=== PATIENT | female | born 1955 | race Caucasian/White ===

== ENCOUNTER 2017-05-31 17:00 | Emergency (ER) | payer BC ==
[2017-05-31 17:07] VITALS: RESP 16
[2017-05-31] MEDS ORDERED: RX INFO: IV CONTRAST WAS GIVEN 1 EACH MISC MISCELLANE PRN (17:31)
[2017-05-31] MEDS ORDERED: SODIUM CHLORIDE 0.9% 1,000 ML IV STA (17:31)
--- NOTE | 2017-05-31 17:38 | ED ---
Abdominal Pain HPI - General Chief Complaint: Abdominal Pain Stated Complaint: Abd Pain- Dr Sent Time Seen by Provider: 05/31/17 17:24 Source: patient, RN notes reviewed, old records reviewed Mode of arrival: ambulatory Limitations: no limitations - History of Present Illness Initial Comments: This is a 61-year-old female presents emergency Department with chief complaint of right lower quadrant abdominal pain for the past week. Patient reports that she is sent in by her primary care doctor. She was at the pain seemed to start last weekend and she was not able to do any work with had sitting. She reports that the pain seems to worse with ambulation. Patient denies any specific fevers but states that she's felt chilled. She reports that she initially thought she was constipated and took multiple laxative to help with having a bowel movement. She denies any difficulty with bowel movements or diarrhea. She reports that she's had no nausea or vomiting as well. Patient reports that the pain is worse with ambulation and jumping up and down. She was sent here by her primary care provider Dr. Freddy Lea to rule out appendicitis. Patient reports that she has had a total hysterectomy, denies any other surgical history. Patient denies any urinary symptoms including hematuria or dysuria, melena or hematochezia, chest pain, shortness of breath, nausea, headache. - Related Data Home Medications Medication Instructions Recorded Confirmed Aspirin 81 mg PO DAILY 05/31/17 05/31/17 Multivit with Calcium,Iron,Min 1 tab PO DAILY 05/31/17 05/31/17 [Women's Multivitamin] Previous Rx's Medication Instructions Recorded Acetaminophen-Codeine 300-30mg 1 tab PO Q6H PRN #12 tablet 05/31/17 [Tylenol #3] Ciprofloxacin HCl [Cipro] 500 mg PO Q12HR 10 Days 05/31/17 metroNIDAZOLE [Flagyl] 500 mg PO TID #21 tab 05/31/17 Allergies Allergy/AdvReac Type Severity Reaction Status Date / Time No Known Allergies Allergy Verified 05/31/17 18:34 Review of Systems ROS Statement: Those systems with pertinent positive or pertinent negative responses have been documented in the HPI. ROS Other: All systems not noted in ROS Statement are negative. Past Medical History Past Medical History: No Reported History History of Any Multi-Drug Resistant Organisms: None Reported Past Surgical History: Hysterectomy Past Psychological History: No Psychological Hx Reported Smoking Status: Never smoker Past Alcohol Use History: Occasional Past Drug Use History: None Reported General Exam - General Exam Comments Initial Comments: 61-year-old female. No acute distress. Limitations: no limitations General appearance: alert, in no apparent distress Head exam: Present: atraumatic, normocephalic, normal inspection Eye exam: Present: normal appearance, PERRL, EOMI. Absent: scleral icterus, conjunctival injection, periorbital swelling ENT exam: Present: normal exam, mucous membranes moist Neck exam: Present: normal inspection. Absent: tenderness, meningismus, lymphadenopathy Respiratory exam: Present: normal lung sounds bilaterally. Absent: respiratory distress, wheezes, rales, rhonchi, stridor Cardiovascular Exam: Present: regular rate, normal rhythm, normal heart sounds. Absent: systolic murmur, diastolic murmur, rubs, gallop, clicks GI/Abdominal exam: Present: soft, tenderness (Patient has significant right lower quadrant tenderness with deep palpation. Positive psoas sign.), normal bowel sounds. Absent: distended, guarding, rebound, rigid Extremities exam: Present: normal inspection, full ROM, normal capillary refill. Absent: tenderness, pedal edema, joint swelling, calf tenderness Back exam: Present: normal inspection Neurological exam: Present: alert, oriented X3, CN II-XII intact Psychiatric exam: Present: normal affect, normal mood Skin exam: Present: warm, dry, intact, normal color. Absent: rash Course Vital Signs 05/31/17 05/31/17 17:02 18:58 Temperature 98.4 F 98.1 F Pulse Rate 81 85 Respiratory 16 16 Rate Blood Pressure 175/83 169/80 O2 Sat by Pulse 97 98 Oximetry Medical Decision Making - Medical Decision Making This is a 61-year-old female presents emergency Department with chief complaint of right lower quadrant abdominal pain for the past week. Patient reports that she is sent in by her primary care doctor. She was at the pain seemed to start last weekend and she was not able to do any work with had sitting. She reports that the pain seems to worse with ambulation. Patient denies any specific fevers but states that she's felt chilled. She reports that she initially thought she was constipated and took multiple laxative to help with having a bowel movement. Patient's lab work was reviewed and shows evidence of any acute abnormalities. CT abdomen and pelvis was performed. Evidence of proximal sigmoid diverticulitis. Patient was started on Cipro and Flagyl. Discussed avoiding all with these drugs. Patient also discharged medication. Patient agrees with treatment plan will comply. Return as were discussed. - Lab Data Result diagrams: 05/31/17 17:44 05/31/17 17:44 Lab Results 05/31/17 05/31/17 05/31/17 Range/Units 17:44 17:44 17:44 WBC 7.1 (3.8-10.6) k/uL RBC 4.62 (3.80-5.40) m/uL Hgb 14.0 (11.4-16.0) gm/dL Hct 39.3 (34.0-46.0) % MCV 84.9 (80.0-100.0) fL MCH 30.3 (25.0-35.0) pg MCHC 35.7 (31.0-37.0) g/dL RDW 13.5 (11.5-15.5) % Plt Count 321 (150-450) k/uL Neutrophils % 49 % Lymphocytes % 37 % Monocytes % 8 % Eosinophils % 2 % Basophils % 1 % Neutrophils # 3.5 (1.3-7.7) k/uL Lymphocytes # 2.6 (1.0-4.8) k/uL Monocytes # 0.6 (0-1.0) k/uL Eosinophils # 0.2 (0-0.7) k/uL Basophils # 0.1 (0-0.2) k/uL Sodium 142 (137-145) mmol/L Potassium 4.1 (3.5-5.1) mmol/L Chloride 107 (98-107) mmol/L Carbon Dioxide 25 (22-30) mmol/L Anion Gap 10 mmol/L BUN 23 H (7-17) mg/dL Creatinine 0.80 (0.52-1.04) mg/dL Est GFR (MDRD) Af Amer >60 (>60 ml/min/1.73 sqM) Est GFR (MDRD) Non-Af >60 (>60 ml/min/1.73 sqM) Glucose 97 (74-99) mg/dL Plasma Lactic Acid [place] 1.0 (0.7-2.0) mmol/L Calcium 9.3 (8.4-10.2) mg/dL Total Bilirubin 0.3 (0.2-1.3) mg/dL AST 59 H (14-36) U/L ALT 98 H (9-52) U/L Alkaline Phosphatase 132 H (38-126) U/L Total Protein 6.8 (6.3-8.2) g/dL Albumin 4.1 (3.5-5.0) g/dL Amylase 55 (30-110) U/L Lipase 243 (23-300) U/L Urine Color Urine Appearance (Clear) Urine pH (5.0-8.0) Ur Specific [place] (1.001-1.035) Urine Protein (Negative) Urine Glucose (UA) (Negative) Urine Ketones (Negative) Urine Blood (Negative) Urine Nitrite (Negative) Urine Bilirubin (Negative) Urine Urobilinogen (<2.0) mg/dL Ur Leukocyte Esterase (Negative) Urine RBC (0-5) /hpf Urine WBC (0-5) /hpf Ur Squamous Epith Cells (0-4) /hpf Urine Bacteria (None) /hpf Urine Mucus (None) /hpf 05/31/17 Range/Units 18:23 WBC (3.8-10.6) k/uL RBC (3.80-5.40) m/uL Hgb (11.4-16.0) gm/dL Hct (34.0-46.0) % MCV (80.0-100.0) fL MCH (25.0-35.0) pg MCHC (31.0-37.0) g/dL RDW (11.5-15.5) % Plt Count (150-450) k/uL Neutrophils % % Lymphocytes % % Monocytes % % Eosinophils % % Basophils % % Neutrophils # (1.3-7.7) k/uL Lymphocytes # (1.0-4.8) k/uL Monocytes # (0-1.0) k/uL Eosinophils # (0-0.7) k/uL Basophils # (0-0.2) k/uL Sodium (137-145) mmol/L Potassium (3.5-5.1) mmol/L Chloride (98-107) mmol/L Carbon Dioxide (22-30) mmol/L Anion Gap mmol/L BUN (7-17) mg/dL Creatinine (0.52-1.04) mg/dL Est GFR (MDRD) Af Amer (>60 ml/min/1.73 sqM) Est GFR (MDRD) Non-Af (>60 ml/min/1.73 sqM) Glucose (74-99) mg/dL Plasma Lactic Acid [place] (0.7-2.0) mmol/L Calcium (8.4-10.2) mg/dL Total Bilirubin (0.2-1.3) mg/dL AST (14-36) U/L ALT (9-52) U/L Alkaline Phosphatase (38-126) U/L Total Protein (6.3-8.2) g/dL Albumin (3.5-5.0) g/dL Amylase (30-110) U/L Lipase (23-300) U/L Urine Color Yellow Urine Appearance Clear (Clear) Urine pH 6.5 (5.0-8.0) Ur Specific [place] 1.016 (1.001-1.035) Urine Protein Negative (Negative) Urine Glucose (UA) Negative (Negative) Urine Ketones Negative (Negative) Urine Blood Trace H (Negative) Urine Nitrite Negative (Negative) Urine Bilirubin Negative (Negative) Urine Urobilinogen <2.0 (<2.0) mg/dL Ur Leukocyte Esterase Large H (Negative) Urine RBC 3 (0-5) /hpf Urine WBC 6 H (0-5) /hpf Ur Squamous Epith Cells 2 (0-4) /hpf Urine Bacteria Rare H (None) /hpf Urine Mucus Rare H (None) /hpf - Radiology Data Radiology results: report reviewed CT abdomen and pelvis shows acute proximal sigmoid diverticulitis. No evidence of appendicitis. Disposition Clinical Impression: Acute diverticulitis Disposition: HOME SELF-CARE Condition: Good Instructions: Diverticulitis (ED), Diverticulitis Diet (ED) Additional Instructions: Patient denies to rest, recommending a soft food and clear liquid diet for the next 48 hours. Take antibiotics as prescribed. Follow-up with your primary care provider. Return to the emergency department if any alarming signs or symptoms occur. Prescriptions: Acetaminophen-Codeine 300-30mg [Tylenol #3] 1 tab PO Q6H PRN #12 tablet PRN Reason: Pain Ciprofloxacin HCl [Cipro] 500 mg PO Q12HR 10 Days metroNIDAZOLE [Flagyl] 500 mg PO TID #21 tab Referrals: Freddy Bliss MD [Primary Care Provider] - 1-2 days Time of Disposition: 19:30
[2017-05-31] MEDS ORDERED: SODIUM CHLORIDE 0.9% 1,000 ML IV SCH (17:45)
[2017-05-31 17:58] LABS: Basophils # (A) 0.1 k/uL (0-0.2); Basophils % (A) 1 %; CH 29.9; CHCM 35.3; Eosinophils # (A) 0.2 k/uL (0-0.7); Eosinophils % (A) 2 %; HCT 39.3 % (34.0-46.0); HDW 2.74; Luc # (Auto) 0.18; Luc % (Auto) 3; Lymphocytes # (A) 2.6 k/uL (1.0-4.8); Lymphocytes % (A) 37 %; MCH 30.3 pg (25.0-35.0); MCHC 35.7 g/dL (31.0-37.0); MCV 84.9 fL (80.0-100.0); Mean Platelet Volume 7.1; Monocytes # (A) 0.6 k/uL (0-1.0); Monocytes % (A) 8 %; Neutrophils # (A) 3.5 k/uL (1.3-7.7); Neutrophils % (A) 49 %; RBC 4.62 m/uL (3.80-5.40); RDW 13.5 % (11.5-15.5); WBC 7.1 k/uL (3.8-10.6); WBC (Perox) 6.59
[2017-05-31 18:07] LABS: ALT 98 U/L (9-52); AST 59 U/L (14-36); Alkaline Phosphatase 132 U/L (38-126); Amylase 55 U/L (30-110); Anion Gap 10 mmol/L; Blood Urea Nitrogen 23 mg/dL (7-17); Calcium 9.3 mg/dL (8.4-10.2); Carbon Dioxide 25 mmol/L (22-30); Chloride 107 mmol/L (98-107); Glucose 97 mg/dL (74-99); Non-African American GFR(MDRD) >60 (>60 ml/min/1.73 sqM); Potassium 4.1 mmol/L (3.5-5.1); Sodium 142 mmol/L (137-145); Total Bilirubin 0.3 mg/dL (0.2-1.3); Total Protein 6.8 g/dL (6.3-8.2)
[2017-05-31 18:43] LABS: Appearance,Urine Clear (Clear); Bacteria,Urine Rare /hpf; Bilirubin,Urine Negative (Negative); Glucose,Urine (UA) Negative (Negative); Ketones,Urine Negative (Negative); Leukocyte Esterase,Urine Large (Negative); Mucus,Urine Rare /hpf; Nitrite,Urine Negative (Negative); PH, Urine 6.5 (5.0-8.0); Particle Count 1627; Protein,Urine Negative (Negative); RBC,Urine 3 /hpf (0-5); Specific Gravity,Urine 1.016 (1.001-1.035); Squamous Epithelial Cell,Urine 2 /hpf (0-4); UA Billing (MACRO vs. MICRO) MICRO; Urobilinogen,Urine <2.0 mg/dL (<2.0); WBC,Urine 6 /hpf (0-5)
--- NOTE | 2017-05-31 19:02 | CT ---
EXAMINATION TYPE: CT abdomen pelvis w con DATE OF EXAM: 05/31/2017 COMPARISON: NONE HISTORY: Right lower quadrant pain CT DLP: 1398 mGycm Automated exposure control for dose reduction was used. TECHNIQUE: Helical acquisition of images was performed from the lung bases through the pelvis. CONTRAST: Performed without Oral Contrast and with IV Contrast, patient injected with 100 mL of Omnipaque 300. FINDINGS: There is mild subsegmental atelectasis at the posterior lung bases. There is no pleural effusion. Liver spleen pancreas gallbladder appear normal. Bile ducts are not dilated. There is no adrenal mass. Kidneys show satisfactory contrast opacification. There is no hydronephrosi s. There is no retroperitoneal adenopathy. There is no ascites. There are multiple sigmoid diverticula. There is minimal fat stranding around th e proximal sigmoid colon.. Bladder distends smoothly. I see no pelvic mass. Bony structures are intac t. The appendix appears normal. IMPRESSION: THERE IS EVIDENCE FOR VERY MINIMAL PROXIMAL SIGMOID DIVERTICULITIS. MODERATE COLONIC DIVERTICULOSIS I NVOLVING SIGMOID COLON. NORMAL APPENDIX. MILD BASILAR SUBSEGMENTAL ATELECTASIS.
[2017-05-31] MEDS ORDERED: metroNIDAZOLE 500 MG TAB PO STA (19:30)
[2017-05-31] MEDS ORDERED: CIPROFLOXACIN HCL 250 MG TAB PO STA (19:30)
[2017-05-31] MEDS ORDERED: ACET/COD 300 MG/30 MG STARTER PACK 6 TAB BTL PO STA (19:31)
[2017-05-31 20:22] VITALS: BP 169/88; PULSE 73; TEMP 97.8
== END 2017-05-31 20:00 | disposition home or self-care (01) ==
LOC: EC 17:00
DX: K57.32 Diverticulitis of large intestine without perforation or abscess without bleeding (principal); Z79.82 Long term (current) use of aspirin; Z79.899 Other long term (current) drug therapy; Z90.710 Acquired absence of both cervix and uterus
CPT/HCPCS: 99284; 96360; 36415; 80053; 82150; 83605; 83690; 85025; 81001; 87040; 87086; 74177; Q9967

== ENCOUNTER → 2018-02-03 | Outpatient (CLI) | payer BC ==
--- NOTE | 2018-02-03 13:41 | XR ---
Lumbar spine HISTORY: Sciatica 3 views of the lumbar spine Lumbar vertebral bodies show preserved height and alignment. Suspect a mild spinal curvature. Partial sacralization of L5 is noted. There is overlying artifact. Multilevel spondylosis is present. Bone m ineralization is mildly reduced. Loss of disc height present at the intervertebral levels. Sclerosis present in the posterior elements of the lumbar spine. IMPRESSION: Degenerative disc disease, facet arthropathy and osteopenia. Consider lumbar MRI.
== END | disposition home or self-care (01) ==
LOC: RADXRMAIN 11:40
PROVIDERS: ATTEND Family Medicine
DX: M51.16 Intervertebral disc disorders with radiculopathy, lumbar region (principal); M46.86 Other specified inflammatory spondylopathies, lumbar region; M85.88 Other specified disorders of bone density and structure, other site
CPT/HCPCS: 72100

== ENCOUNTER → 2018-03-12 | Outpatient (CLI) | payer BC ==
--- NOTE | 2018-03-12 13:48 | BD ---
EXAMINATION TYPE: MG DEXA axial skeleton. DATE OF EXAM: 03/12/2018 COMPARISON: 09/16/2013 CLINICAL HISTORY: Postmenopausal female. Osteoporosis screening. Height: 65.5 IN Weight: 167 LBS FRAX RISK QUESTIONS: Alcohol (3 or more units per day): NO Family History (Parent hip fracture): NO Glucocorticoids (More than 3mos): NO (Ex: prednisone, prednisolone, methylprednisolone, dexamethasone, and hydrocortisone). History of Fracture in Adulthood: NO Secondary Osteoporosis: 1. Type 1 Diabetes: NO 2. Hyperthyroidism: NO 3. Menopause before 45: TOTAL HYST AGE 44 4. Malnutrition: NO 5. Chronic liver disease: NO Rheumatoid Arthritis: NO Current Tobacco Use: NO RISK FACTORS HISTORY OF: Family History of Osteoporosis: YES MOTHER Active: YES Diet low in dairy products/other sources of calcium: YES Postmenopausal woman: AGE 44 Take estrogen and/or progesterone medications: NOT NOW How long: AGE 45 - 45 MEDICATIONS: Additional Medications: CALCIUM, VIT D, MULTI VIT, LOW DOSE ASPIRIN, CHOLESTEROL MED, KRILL OIL, EXAM MEASUREMENTS: Bone mineral densitometry was performed using the [employer] System. Bone mineral density as measured about the Lumbar spine is: ----- L1-L4(G/cm2): 0.899 T Score Values are as follows: ----- L2: -2.6 ----- L3: -2.3 ----- L4: -2.2 ----- L1-L4: -2.3 Bone mineral density has: Decreased -12.3% since study of: 09/16/2013 Bone mineral density about the R hip (g/cm2): 0.815 Bone mineral density about the L hip (g/cm2): 0.758 T Score values are as follows: -----R Neck: -1.6 -----L Neck: -2.0 -----R Total: -0.9 -----L Total: -1.4 Bone mineral density has: Decreased -3.7% since study of: 09/16/2013 IMPRESSION: Osteopenia (T Score between -2.5 and -1) with regards to the hips and lumbar spine. There is slightly increased risk of fracture and the patient may be considered for treatment. Re-Screen 2-5 years. NOTE: T-SCORE=SD OF THE YOUNG ADULT MEAN.
== END ==
LOC: RADBDWWP 09:08
PROVIDERS: ATTEND Family Medicine
DX: M85.88 Other specified disorders of bone density and structure, other site (principal); Z78.0 Asymptomatic menopausal state
CPT/HCPCS: 77080

== ENCOUNTER → 2018-03-17 | Outpatient (CLI) | payer BC ==
--- NOTE | 2018-03-19 13:19 | MM ---
Reason for exam: screening (asymptomatic). Last mammogram was performed 2 years and 3 months ago. History: Patient is postmenopausal. Benign excisional biopsy of the right breast. Took estrogen for 1 year. Physical Findings: A clinical breast exam by your physician is recommended on an annual basis and results should be correlated with mammographic findings. MG Screening Mammo w CAD Bilateral CC and MLO view(s) were taken. Prior study comparison: December 08, 2015, right breast MG 3d work up w/cad RT. November 21, 2015, bilateral MG screening mammo w CAD. The breast tissue is heterogeneously dense. This may lower the sensitivity of mammography. No suspicious abnormality. No significant changes when compared with prior studies. ASSESSMENT: Negative, BI-RAD 1 RECOMMENDATION: Routine screening mammogram of both breasts in 1 year.
== END ==
LOC: RADMAMWWP 09:14
PROVIDERS: ATTEND Family Medicine
DX: Z12.39 Encounter for other screening for malignant neoplasm of breast (principal)
CPT/HCPCS: 77067

== ENCOUNTER 2018-03-28 09:13 | Day surgery (SDC) | payer BC ==
[2018-03-26 15:03] VITALS: BMI 27.1
--- NOTE | 2018-03-28 08:10 | P.GSHP ---
History of Present Illness H&P Date: 03/28/18 CHIEF COMPLAINT: Colon screen HISTORY OF PRESENT ILLNESS: The patient is a 62-year-old female who presents for colon screen. Lower endoscopy was offered for further evaluation and management. PAST MEDICAL HISTORY: Please see list. PAST SURGICAL HISTORY: Please see list. MEDICATIONS: Please see list. ALLERGIES: Please see list. SOCIAL HISTORY: No illicit drug use FAMILY HISTORY: No reports of Crohn disease or ulcerative colitis. REVIEW OF ORGAN SYSTEMS: CONSTITUTIONAL: No reports of fevers or chills. PHYSICAL EXAM: VITAL SIGNS: Stable GENERAL: Well-developed pleasant in no acute distress. HEENT: No scleral icterus. Extraocular movements grossly intact. Moist buccal mucosa. NECK: Supple without lymphadenopathy. CHEST: Unlabored respirations. Equal bilateral excursions. CARDIOVASCULAR: Regular rate and rhythm. Distal 2+ pulses. ABDOMEN: Soft, nontender, nondistended. MUSCULOSKELETAL: No clubbing, cyanosis, or edema. ASSESSMENT: 1. Colon screen. PLAN: 1. Recommend proceeding with a lower endoscopy Past Medical History Past Medical History: Cancer, Hyperlipidemia, Thyroid Disorder Additional Past Medical History / Comment(s): SKIN CANCER History of Any Multi-Drug Resistant Organisms: None Reported Past Surgical History: Hysterectomy Additional Past Surgical History / Comment(s): SKIN LESION REMOVED, COLONOSCOPY Past Anesthesia/Blood Transfusion Reactions: No Reported Reaction Smoking Status: Never smoker - Past Family History Mother Family Medical History: No Reported History Medications and Allergies Home Medications Medication Instructions Recorded Confirmed Type Aspirin 81 mg PO DAILY 05/31/17 03/26/18 History Multivitamins, Thera [Multivitamin 1 tab PO DAILY 03/26/18 03/26/18 History (formulary)] Allergies Allergy/AdvReac Type Severity Reaction Status Date / Time ciprofloxacin [From Cipro] Allergy Itching Verified 03/26/18 14:52 metronidazole Allergy Itching Verified 03/26/18 14:54
[~2018-03-28 09:13] MED LIST: LACTATED RINGERS 1,000 ML IV SCH; LIDOCAINE 1% 20 ML VIAL (10MG/ML) FOR IV START INTRADERMA PRN
[2018-03-28 09:35] VITALS: RESP 16; TEMP 97.8
[2018-03-28] MEDS ORDERED: PROPOFOL 10 MG/ML 20 ML VIAL IV ONE (10:52)
--- NOTE | 2018-03-28 11:17 | P.PCN ---
Date of Procedure: 03/28/18 Description of Procedure: PREOPERATIVE DIAGNOSIS: Colonoscopy screening. History of colon polyps POSTOPERATIVE DIAGNOSIS: Colonoscopy screening. History of colon polyps Sigmoid diverticulosis OPERATION: Colonoscopy to the ileocecal valve and appendiceal orifice. SURGEON: Radha Molina MD. ANESTHESIA: MAC. INDICATIONS: The patient is a 62-year-old female who presents for colonoscopy screening. Her last colonoscopy was 5 years ago. Benefits and risks were described and informed consent was obtained. DESCRIPTION OF PROCEDURE: The patient had undergone Gatorade, MiraLAX and Dulcolax prep. she had been brought into the operating room and laid in the left lateral decubitus position. After adequate intravenous sedation, the rectum was examined with 2% lidocaine jelly. No external hemorrhoids were encountered. The rectal tone was within normal limits. No lesions were palpated in the rectal vault. An Olympus colonoscope was advanced until the ileocecal valve and appendiceal orifice were clearly viewed. The prep was excellent with clear visualization of the mucosal folds. The scope was removed with visualization of each mucosal fold. Large- mouth sigmoid diverticulosis was encountered. No colonic polyps were found. No evidence of focal colitis was found. Retroflexion of the scope demonstrated no grade 1 internal hemorrhoids. The colon was desufflated. The patient had tolerated the procedure well. Withdrawal time was over 6 minutes. FINDINGS: No internal hemorrhoids. No external prolapsed hemorrhoids. No arteriovenous malformations. No adenomatous polyps. No focal colitis. Large-mouth sigmoid diverticulosis was encountered. RECOMMENDATIONS: Repeat colonoscopy in 5 years, 2022 Plan - Discharge Summary New Discharge Prescriptions: No Action Aspirin 81 mg PO DAILY Multivitamins, Thera [Multivitamin (formulary)] 1 tab PO DAILY Discharge Medication List Aspirin 81 mg PO DAILY 05/31/17 [History] Multivitamins, Thera [Multivitamin (formulary)] 1 tab PO DAILY 03/26/18 [History ]
[2018-03-28 11:38] VITALS: BP 131/78; PULSE 72
== END 2018-03-28 11:57 | disposition home or self-care (01) ==
LOC: ORWHC2ENDO 09:13
PROVIDERS: ATTEND Surgery Plastic and Reconstructive Surgery
DX: Z12.11 Encounter for screening for malignant neoplasm of colon (principal); K57.30 Diverticulosis of large intestine without perforation or abscess without bleeding; Z86.010 Personal history of colon polyps; E78.5 Hyperlipidemia, unspecified; E07.9 Disorder of thyroid, unspecified; K21.9 Gastro-esophageal reflux disease without esophagitis; Z79.82 Long term (current) use of aspirin; Z88.1 Allergy status to other antibiotic agents; Z85.828 Personal history of other malignant neoplasm of skin
CPT/HCPCS: J2704; G0105; 45378

== ENCOUNTER → 2019-03-28 | Outpatient (CLI) | payer BC ==
--- NOTE | 2019-03-29 11:23 | MM ---
Reason for exam: screening (asymptomatic). Last mammogram was performed 1 year ago. History: Patient is postmenopausal. Benign excisional biopsy of the right breast. Took estrogen for 1 year. Physical Findings: A clinical breast exam by your physician is recommended on an annual basis and results should be correlated with mammographic findings. MG 3D Screening Mammo W/Cad Bilateral CC and MLO view(s) were taken. Prior study comparison: March 17, 2018, bilateral MG screening mammo w CAD. December 08, 2015, right breast MG 3d work up w/cad RT. The breast tissue is heterogeneously dense. This may lower the sensitivity of mammography. No suspicious abnormality. No significant changes when compared with prior studies. ASSESSMENT: Negative, BI-RAD 1 RECOMMENDATION: Routine screening mammogram of both breasts in 1 year.
== END | disposition home or self-care (01) ==
LOC: RADMAMWWP 06:58
PROVIDERS: ATTEND Family Medicine
DX: Z12.31 Encounter for screening mammogram for malignant neoplasm of breast (principal)
CPT/HCPCS: 77063; 77067

== ENCOUNTER → 2019-07-22 | Outpatient (CLI) | payer BC ==
[2019-07-22 10:45] LABS: Ionized Calcium 5.2 mg/dL (4.5-5.3)
== END | disposition home or self-care (01) ==
LOC: LABWHC1 09:10
PROVIDERS: ATTEND Otolaryngology
DX: E04.1 Nontoxic single thyroid nodule (principal)
CPT/HCPCS: 36415; 82330; 84439; 84443; 86376

== ENCOUNTER 2019-08-01 09:19 | Day surgery (SDC) | payer BC ==
[2019-08-01 09:40] VITALS: TEMP 97.9
--- NOTE | 2019-08-01 10:09 | US ---
EXAMINATION TYPE: US thyroid st tissue head/neck DATE OF EXAM: 08/01/2019 COMPARISON: NONE CLINICAL HISTORY: E04.1 thyroid nodule. GLAND SIZE: Right Lobe: 4.2 x 1.6 x 1.4 cm Overall Parenchyma: heterogenous Left Lobe: 3.9 x 1.7 x 1.9 cm Overall Parenchyma: heterogeneous Isthmus Thickness: 0.3 cm NODULES RIGHT: # of nodules measured on right: 1 1. 1.0 X 0.8 x 0.9 cm isoechoic solid nodule at the lower pole with poorly defined margins; . This nodule is wider than tall and shows intranodular vascularity. Prior size: no prior LEFT: # of nodules measured on left: 1 1. 2.7 X 1.4 x 1.7 cm hypoechoic solid nodule at the mid pole with well-defined margins; . This no dule is wider than tall and shows intranodular vascularity. Prior size: no prior ISTHMUS: # of nodules measured in the isthmus: 1 1. 0.7 X 0.3 x 0.8 cm hypoechoic solid nodule at the left side of isthmus pole with well-defined ma rgins; . This nodule is wider than tall and shows no intranodular vascularity. Prior size: no prior Bilateral neck scanned, no evidence of lymphadenopathy. IMPRESSION: Right lobe is diffusely heterogeneous, there is suggestion of nodule versus irregular tissue lower po le, measures above as a nodule.
[2019-08-01 10:40] VITALS: BP 152/79; PULSE 70; RESP 14
--- NOTE | 2019-08-01 13:28 | US ---
EXAMINATION TYPE: US FNA thyroid first lesion DATE OF EXAM: 08/01/2019 COMPARISON: Ultrasound thyroid 08/31/2019 HISTORY: Thyroid nodule. Maximal barrier technique was utilized. After informed consent, skin overlying the lesion was locali zed with ultrasound and the overlying skin prepped and draped. Ultrasound was utilized using sterile technique. Lidocaine was used for local anesthesia. Five passes with a 25-gauge needle were made int o the left lower Pole thyroid nodule and aspirated specimen was submitted to cytology. Following the procedure hemostasis achieved. No immediate complication. The patient discharged in stable conditi on. IMPRESSION: STATUS POST ULTRASOUND GUIDED FINE NEEDLE ASPIRATION OF LEFT THYROID NODULE, PATHOLOGY IS PENDING. THIS PROCEDURE WAS PERFORMED BY THE UNDERSIGNED.
== END 2019-08-01 10:35 | disposition home or self-care (01) ==
LOC: RADPROMAIN 09:19 → EDSTATUS 09:30 → RADPROMAIN 10:35
PROVIDERS: ATTEND Otolaryngology
DX: E04.1 Nontoxic single thyroid nodule (principal)
CPT/HCPCS: 10005; 76536; 88173; 88305

== ENCOUNTER → 2019-11-14 | Outpatient (CLI) | payer BC ==
--- NOTE | 2019-11-14 08:08 | US ---
EXAMINATION TYPE: US thyroid st tissue head/neck DATE OF EXAM: 11/14/2019 COMPARISON: US 08/01/2019 thyroid ultrasound and biopsy CLINICAL HISTORY: E04.1 Thyroid nodule;followup GLAND SIZE: Right Lobe: 4.4 x 1.2 x 1.4 Overall Parenchyma: heterogeneous Left Lobe: 4.5 x 2.2 x 1.6 Overall Parenchyma: heterogeneous Isthmus Thickness: 0.4m NODULES RIGHT: # of nodules measured on right: 2 1. 2.0 X 1.5 x 0.9 cm hypoechoic mixed nodule at the mid pole with poorly defined margins. This no dule is wider than tall and shows intranodular vascularity. Prior size: 1.0 x 0.8 x 0.9 cm 2. 0.4 X 0.3 x 0.3 cm hypoechoic mixed nodule at the upper pole with well-defined margins. This nod ule is wide as is tall and shows no intranodular vascularity. Prior size: no prior LEFT: # of nodules measured on left: 1 1. 2.4 X 1.6 x 1.5 cm hypoechoic solid nodule at the mid pole with well-defined margins. This nodu le is wider than tall and shows intranodular vascularity. This was previously biopsied on 08/01/2019 Prior size: 2.7 x 1.4 x 1.7 cm ISTHMUS: # of nodules measured in the isthmus: 1 1. 0.6 x 0.7 x 0.3cm mixed hypoechoic nodule at the mid pole with poorly defined margins. This nod ule is wider than tall and shows no intranodular vascularity. Prior size: 0.7 x 0.3 x 0.8 cm Bilateral neck scanned: lymph node type appearance of nodule inferior to right thyroid = 1.0 x 1.0 x 0.5cm IMPRESSION: 1. Interval growth of the right thyroid nodule previously measuring 1.0 cm and now measuring 2.0 cm. Fine-needle aspiration should considered. 2. Stability of the previously biopsied left thyroid nodule and stability of the isthmic nodule. Cyndi tary new subcentimeter right nodule.
== END | disposition home or self-care (01) ==
LOC: RADUSWWP 06:51
PROVIDERS: ATTEND Otolaryngology
DX: E04.1 Nontoxic single thyroid nodule (principal); R22.0 Localized swelling, mass and lump, head
CPT/HCPCS: 76536

== ENCOUNTER → 2020-07-18 | Outpatient (CLI) | payer BC ==
--- NOTE | 2020-07-18 10:52 | XR ---
EXAMINATION TYPE: XR shoulder complete LT DATE OF EXAM: 07/18/2020 COMPARISON: NONE HISTORY: 64 year-old female left shoulder pain TECHNIQUE: 3 views FINDINGS: Moderate degenerative change at the AC joint with joint space narrowing and marginal spurring. Subacr omial space is preserved. No tendinous or bursal calcifications. There is mild bony irregularity at t he greater tuberosity. Subtle bony irregularity along the inferior tip of the scapula on the scapular Y view. Otherwise, no acute fracture, subluxation, or dislocation. IMPRESSION: 1. Subtle bony irregularity along the inferior tip of the scapula on the scapular Y view. Correlate f or any pinpoint tenderness here to exclude a subtle nondisplaced inferior scapular tip fracture. 2. Moderate AC joint OA. Some bony changes suggesting underlying chronic rotator cuff tendinopathy. 3. Otherwise, no other acute osseous abnormality seen.
== END | disposition home or self-care (01) ==
LOC: RADXRMAIN 10:31
PROVIDERS: ATTEND Nurse Practitioner Family
DX: M19.012 Primary osteoarthritis, left shoulder (principal); M25.812 Other specified joint disorders, left shoulder

== ENCOUNTER → 2021-07-22 | Outpatient (CLI) | payer BC ==
--- NOTE | 2021-07-22 08:13 | US ---
EXAMINATION TYPE: US thyroid st tissue head/neck DATE OF EXAM: 07/22/2021 COMPARISON: 11/14/2019 CLINICAL HISTORY: 65-year-old female E04.2 nontoxic MULTINODULAR GOITER. History of biopsy. Technique: Multiple sonographic images of the thyroid gland are obtained. FINDINGS: GLAND SIZE: Right Lobe: 4.3 x 1.9 x 1.9 cm Overall Parenchyma: heterogenous Left Lobe: 4.7 x 1.9 x 1.9 cm Overall Parenchyma: heterogeneous Isthmus Thickness: 0.29 cm NODULES RIGHT: # of nodules measured on right: 3 1. 1.3 X 1.0 x 0.9 cm, mid heterogeneous hypoechoic nodule, with smooth margins, without echogenic f oci. Prior size: 2.0 x 1.5 x 0.9 cm 2. 0.4 X 0.4 x 0.3 cm, upper mid, hypoechoic nodule, which is wider than tall, with smooth margins, without echogenic foci. Prior size: 0.4 x 0.3 x 0.3 cm 3. 0.6 X 0.8 x 0.6 cm, mid , solid or almost completely solid, hyperechoic nodule, which is wider t juares tall, with smooth margins, without echogenic foci. Prior size: No prior correlates. LEFT: # of nodules measured on left: 1 1. 2.4 X 1.8 x 1.3 cm, mid, solid or almost completely solid, hypoechoic nodule, which is wider lynne n tall, with smooth margins, without echogenic foci. Prior size: 2.4 x 1.6 x 1.5 cm ISTHMUS: # of nodules measured in the isthmus: 1 1. 0.8 X 0.5 x 0.6 cm solid or almost completely solid, hyperechoic TR 3 nodule, which is taller th an wide, with smooth margins, without echogenic foci. This nodule appears on the edge of the left thy roid lobe extending into the isthmus. Prior size: Prior does not correlate. Bilateral neck scanned, no evidence of lymphadenopathy. IMPRESSION: 1. There appears to be a new 8 mm TR 3 solid nodule near the left thyroid isthmus. Follow-up recommen ded. 2. The dominant 2.4 cm TR 4 nodule in the left lobe is stable. 3. The second TR 4 nodule is located on the right measuring 1.3 cm and is smaller compared to 2.0 cm, previously.
[2021-07-22 08:58] LABS: T4, Free (Free Thyroxine) 0.86 ng/dL (0.78-2.19)
== END | disposition home or self-care (01) ==
LOC: RADUSWWP 06:57
PROVIDERS: ATTEND Internal Medicine Endocrinology, Diabetes & Metabolism
DX: E04.1 Nontoxic single thyroid nodule (principal); R22.0 Localized swelling, mass and lump, head
CPT/HCPCS: 36415; 76536; 84439; 84443

== ENCOUNTER → 2021-10-30 | Outpatient (CLI) | payer BC, OTHER ==
--- NOTE | 2021-10-30 20:45 | XR ---
EXAMINATION TYPE: XR shoulder complete LT DATE OF EXAM: 10/30/2021 COMPARISON: NONE HISTORY: Pain TECHNIQUE: Three views are submitted. FINDINGS: The osseous structures are intact. There is no acute fracture or dislocation. AC joint arthropathy. IMPRESSION: 1. AC joint arthropathy. If concern for rotator cuff disease correlate with MRI.
== END | disposition home or self-care (01) ==
LOC: RADXRMAIN 12:08
PROVIDERS: ATTEND Nurse Practitioner Family
DX: M25.512 Pain in left shoulder (principal)

== ENCOUNTER → 2021-11-28 | Outpatient (CLI) | payer BC, OTHER ==
--- NOTE | 2021-11-28 09:10 | MR ---
EXAMINATION TYPE: MR shoulder LT wo con DATE OF EXAM: 11/28/2021 COMPARISON: None HISTORY: Left shoulder pain, injured in fall 1 year ago. TECHNIQUE: Multiplanar, multisequence imaging of the left shoulder is performed without contrast. FINDINGS: There is moderate osteophytic change of the acromioclavicular joint resulting in mild to moderate cecilio ulder impingement. The glenohumeral joint is intact without significant degeneration. The cartilagino us labrum is grossly intact. There is no evidence of fracture or bone contusion within the visualized osseous structures. There are small intrasubstance tears of the distal supraspinatus tendon and the subscapularis tendon. There is no retraction of the musculotendinous junction of the supraspinatus tendon. There is moderate to marked fluid in the subacromial and subdeltoid bursa consistent with bursitis. There is mild fluid within the biceps tendon sheath but no biceps tendon tear or dislocation. IMPRESSION: 1. Moderate to marked degeneration of the acromioclavicular joint resulting in shoulder impingement. 2. Small intrasubstance tears of the supraspinatus tendon without retraction of the musculotendinous junction. 3. Small intrasubstance tear of the subscapularis tendon. 4. Marked subacromial and subdeltoid bursitis. 5. No bone contusion or fracture.
== END | disposition home or self-care (01) ==
LOC: RADMRIMAIN 08:03
PROVIDERS: ATTEND Family Medicine
DX: M25.812 Other specified joint disorders, left shoulder (principal); M75.102 Unspecified rotator cuff tear or rupture of left shoulder, not specified as traumatic

== ENCOUNTER → 2022-01-04 | Outpatient (CLI) | payer BC, OTHER ==
--- NOTE | 2022-01-04 09:29 | US ---
EXAMINATION TYPE: US abdomen complete DATE OF EXAM: 01/04/2022 COMPARISON: None CLINICAL HISTORY: 66-year-old female R94.5 ABN LIVER FUNCTION STUDIES. TECHNIQUE: Multiple sonographic images of the abdomen are obtained. FINDINGS: EXAM MEASUREMENTS: Liver Length: 15.9 cm Gallbladder Wall: 0.2 cm CBD: 0.3 cm Spleen: 9.6 cm Right Kidney: 9.8 x 4.8 x 5.1 cm Left Kidney: 10.6 x 5.3 x 4.8 cm Pancreas: Suboptimal visualization of the pancreatic head due to shadowing from bowel gas. Visualize d portions show no gross abnormal body. Liver: Markedly echogenic and attenuating. This secondarily limits assessment for focal lesions. Gallbladder: 2.4cm hyperechoic focus. No abnormal gallbladder distention, wall thickening, or surrou nding fluid. Evidence for sonographic Antonio's sign: no CBD: visualized portions wnl, limited by overlying bowel gas Spleen: wnl Right Kidney: wnl Left Kidney: wnl Upper IVC: wnl Abd Aorta: wnl IMPRESSION: 1. A 2.4 cm gallstone. No ancillary findings of acute cholecystitis. 2. Correlate for moderate to severe hepatic steatosis. 3. The visualized portion of the bile duct is normal caliber at 3 mm.
== END | disposition home or self-care (01) ==
LOC: RADUSWWP 06:59
PROVIDERS: ATTEND Family Medicine
DX: K80.20 Calculus of gallbladder without cholecystitis without obstruction (principal)
CPT/HCPCS: 76700

== ENCOUNTER → 2022-09-02 | Outpatient (CLI) | payer BC, OTHER ==
--- NOTE | 2022-09-02 12:16 | US ---
EXAMINATION TYPE: US thyroid st tissue head/neck DATE OF EXAM: 09/02/2022 COMPARISON: US CLINICAL HISTORY: E04.2 NON TOXIC GOITER. GLAND SIZE: Right Lobe: 4.4 x 1.3 x 2.0 cm Overall Parenchyma: heterogenous Left Lobe: 4.0 x 1.4 x 1.8 cm Overall Parenchyma: heterogeneous Isthmus Thickness: 0.3 cm NODULES RIGHT: # of nodules measured on right: 1 1. 1.3 X 1.1 x 0.7 cm, lower, Prior size: 1.3 x 1.0 x 0.9 cm TIRADS Score: 3 TIRADS Category 3: Mildly Suspicious Composition: Solid or almost completely solid (2 points). Echogenicity: Hyperechoic or isoechoic (1 point). Shape: Wider than tall (0 points). Margin: Ill-defined (0 points). Echogenic foci: None or large comet-tail artifacts (0 points) Recommendation: If >2.5cm: FNA; If >1.5cm: Follow up at 1,3,5 years LEFT: # of nodules measured on left: 1 1. 1.9 X 1.7 x 1.6 cm, lower, Prior size: 2.4 x 1.8 x 1.3 cm TIRADS Score: 3 TIRADS Category 3: Mildly Suspicious Composition: Solid or almost completely solid (2 points). Echogenicity: Hyperechoic or isoechoic (1 point). Shape: Wider than tall (0 points). Margin: Ill-defined (0 points). Echogenic foci: None or large comet-tail artifacts (0 points) Recommendation: If >2.5cm: FNA; If >1.5cm: Follow up at 1,3,5 years ISTHMUS: # of nodules measured in the isthmus: 1 1. 0.8 X 0.3 x 0.5 cm Prior size: 0.8 x 0.5 x 0.6 cm TIRADS Score: 3 TIRADS Category 3: Mildly Suspicious Composition: Solid or almost completely solid (2 points). Echogenicity: Hyperechoic or isoechoic (1 point). Shape: Wider than tall (0 points). Margin: Ill-defined (0 points). Echogenic foci: None or large comet-tail artifacts (0 points) Recommendation: If >2.5cm: FNA; If >1.5cm: Follow up at 1,3,5 years Bilateral neck scanned, no evidence of lymphadenopathy. Heterogeneous thyroid with stable nodules shashank aterally. IMPRESSION: Bilateral thyroid nodules that meet criteria for follow-up.
[2022-09-02 17:28] LABS: T4, Free (Free Thyroxine) 1.11 ng/dL (0.800-1.800)
== END | disposition home or self-care (01) ==
LOC: RADUSWWP 09:43
PROVIDERS: ATTEND Internal Medicine Endocrinology, Diabetes & Metabolism
DX: E04.2 Nontoxic multinodular goiter (principal)
CPT/HCPCS: 76536; 84439; 84443; 84480

== ENCOUNTER → 2023-01-25 | Outpatient (CLI) | payer BC, OTHER ==
--- NOTE | 2023-01-25 10:40 | MM ---
Reason for Exam: Additional evaluation requested from abnormal screening. Last screening mammogram was performed less than 1 month ago. Patient History: Menarche at age 12. First Full-Term at age 19. Left ovary removed at age 49. Right ovary removed at age 49. Hysterectomy at age 49. Postmenopausal. Patient has history of breast feeding. Patient used Estrogen for 1 year. Benign Excisional Biopsy on the right side. Risk Values: Nyla 5 year model risk: 1.8%. NCI Lifetime model risk: 5.9%. Prior Study Comparison: 03/17/2018 Bilateral Screening Mammogram, [facility]. 03/28/2019 Bilateral Screening Mammogram, [facility]. 01/23/2023 Bilateral MG 3D screening mammo w/cad, [facility]. Tissue Density: Right: The breast tissue is heterogeneously dense. This may lower the sensitivity of mammography. Findings: Analyzed By CAD. 1:00 grouped microcalcifications become less pronounced and are very difficult to visualize, if at all, on the additional magnification views. Suspect product of the synthesized view on the screening exam. Six-month follow-up recommended. Overall Assessment: Probably benign, BI-RAD 3 Management: Diagnostic Mammogram of the right breast in 6 months. 1. Patient should continue monthly self breast exams. 2. A clinical breast exam by your physician is recommended on an annual basis. 3. This exam should not preclude additional follow-up of suspicious palpable abnormalities. Electronically signed and approved by: Julia Hernandez M.D. Radiologist
== END | disposition home or self-care (01) ==
LOC: RADMAMWWP 10:14
PROVIDERS: ATTEND Family Medicine
DX: R92.8 Other abnormal and inconclusive findings on diagnostic imaging of breast (principal); Z78.0 Asymptomatic menopausal state
CPT/HCPCS: 77065

== ENCOUNTER → 2023-12-19 | Outpatient (CLI) | payer MEDICARE ==
--- NOTE | 2023-12-20 07:21 | US ---
EXAMINATION TYPE: US thyroid st tissue head/neck DATE OF EXAM: 12/19/2023 COMPARISON: NONE CLINICAL INDICATION: Female, 68 years old with history of E07.9 DISORDER OF THYROID, UNSPECIFIED; Dis order of thyroid. GLAND SIZE: Right Lobe: 4.3 x 1.8 x 1.8 cm Overall Parenchyma: heterogenous Left Lobe: 4.8 x 1.9 x 2.0 cm Overall Parenchyma: heterogenous Isthmus Thickness: 0.38 cm NODULES RIGHT: # of nodules measured on right: 3 1. 0.8 X 0.8 x 0.6 cm, mid mid, Prior size: Not seen on prior. TIRADS Score: 3 TIRADS Category 3: Composition: Solid or almost completely solid (2 points). Echogenicity: Hyperechoic or isoechoic (1 point). Shape: Wider than tall (0 points). Echogenic foci: None or large comet-tail artifacts (0 points) Recommendation: If >2.5cm: FNA; If >1.5cm: Follow up at 1,3,5 years 2. 1.2 X 0.7 x 0.8 cm, lower mid, Prior size: 1.2 x 0.5 x 1.1 cm TIRADS Score: 4 TIRADS Category 4: Composition: Solid or almost completely solid (2 points). Echogenicity: Hypoechoic (2 points). Shape: Wider than tall (0 points). Echogenic foci: None or large comet-tail artifacts (0 points) Recommendation: If >1.5cm: FNA; If >1cm: Follow up at 1,2, 3,5 years 3. 0.8 X 0.7 x 0.9 cm, mid medial, Prior size: Not seen on prior. TIRADS Score: 3 TIRADS Category 3: Composition: Solid or almost completely solid (2 points). Echogenicity: Hyperechoic or isoechoic (1 point). Shape: Wider than tall (0 points). Echogenic foci: None or large comet-tail artifacts (0 points) Recommendation: If >2.5cm: FNA; If >1.5cm: Follow up at 1,3,5 years LEFT: # of nodules measured on left: 2 1. 2.6 X 1.7 x 1.7 cm, mid medial, Prior size: 2.4 x 1.2 x 1.8 cm TIRADS Score: 4 TIRADS Category 4: Composition: Solid or almost completely solid (2 points). Echogenicity: Hypoechoic (2 points). Shape: Wider than tall (0 points). Echogenic foci: None or large comet-tail artifacts (0 points) Recommendation: If >1.5cm: FNA; If >1cm: Follow up at 1,2, 3,5 years 2. 1.0 X 0.6 x 0.6 cm, upper medial, Prior size: Not seen on prior. TIRADS Score: 3 TIRADS Category 3: Composition: Solid or almost completely solid (2 points). Echogenicity: Hyperechoic or isoechoic (1 point). Shape: Wider than tall (0 points). Echogenic foci: None or large comet-tail artifacts (0 points) Recommendation: If >2.5cm: FNA; If >1.5cm: Follow up at 1,3,5 years ISTHMUS: # of nodules measured in the isthmus: 0 Bilateral neck scanned, no evidence of lymphadenopathy. IMPRESSION: Bilateral thyroid nodules one on the left, nodule 1, meets criteria for fine-needle aspiration of nod ularity performed.
== END | disposition home or self-care (01) ==
LOC: RADUSWWP 15:51
PROVIDERS: ATTEND Family Medicine
DX: E04.2 Nontoxic multinodular goiter (principal)
CPT/HCPCS: 76536

== ENCOUNTER → 2024-01-26 | Outpatient (CLI) | payer MEDICARE ==
--- NOTE | 2024-01-26 10:34 | MM ---
Reason for Exam: Additional evaluation requested from prior study. Last screening mammogram was performed 12 month(s) ago. Patient History: Menarche at age 12. First Full-Term at age 19. Left ovary removed at age 49. Right ovary removed at age 49. Hysterectomy at age 49. Postmenopausal. Patient has history of breast feeding. Patient used Estrogen for 1 year. Benign Excisional Biopsy on the right side. Risk Values: Nyla 5 year model risk: 1.8%. NCI Lifetime model risk: 5.6%. Tissue Density: The breasts are heterogeneously dense, which may obscure small masses. Findings: Analyzed By CAD. The previously questioned calcifications in the right breast are less pronounced. An asymmetric density at the 12:00 position does not persist on spot 3-D CC and spot 3-D MLO views. This suggests superimposition shadow. No significant change from prior exam. Overall Assessment: Benign, BI-RAD 2 Management: Screening Mammogram of both breasts in 1 year. . Results were given to the patient verbally at the time of exam. Patient should continue monthly self-breast exams. A clinical breast exam by your physician is recommended on an annual basis. This exam should not preclude additional follow-up of suspicious palpable abnormalities. Note on Nyla scores and lifetime risk: 1. A Nyla score greater than 3% is considered moderate risk. If this is the case, consider specialist referral to assess eligibility for a risk reducing agent. 2. If overall lifetime risk for the development of breast cancer is 20% or higher, the patient may qualify for future screening with alternating mammogram and breast MRI. Electronically signed and approved by: Julia Hernandez M.D. Radiologist
== END | disposition home or self-care (01) ==
LOC: RADMAMWWP 09:49
PROVIDERS: ATTEND Family Medicine
DX: R92.333 Mammographic heterogeneous density, bilateral breasts (principal)
CPT/HCPCS: 77066; G0279; 77062

== ENCOUNTER → 2024-06-12 | Outpatient (CLI) | payer MEDICARE ==
--- NOTE | 2024-06-12 16:04 | US ---
EXAMINATION TYPE: US thyroid st tissue head/neck DATE OF EXAM: 06/12/2024 COMPARISON: NONE CLINICAL INDICATION: Female, 68 years old with history of E04.1 THYROID [id number] THYROID NODULE; T hyroid nodules GLAND SIZE: Right Lobe: 4.0 x 1.9 x 2.1 cm Overall Parenchyma: heterogeneous Left Lobe: 4.5 x 1.8 x 2.1 cm Overall Parenchyma: heterogeneous Isthmus Thickness: .3 cm NODULES RIGHT: # of nodules measured on right: Multiple measured two. 1.8 X .9 x 1.5 cm, lower , Prior size: 1.2 x .8 x .7 cm TIRADS Score: 4 TIRADS Category 4: Composition: Solid or almost completely solid (2 points). Echogenicity: Hypoechoic (2 points). Shape: Wider than tall (0 points). Margin: Smooth (0 points). Echogenic foci: None or large comet-tail artifacts (0 points) Recommendation: If >1.5cm: FNA; If >1cm: Follow up at 1,2, 3,5 years LEFT: # of nodules measured on left: 2 1. 2.4 X 1.5 x 1.7 cm, mid , Prior size: 2.6 x 1.7 x 1.7 cm TIRADS Score: 4 TIRADS Category 4: Composition: Solid or almost completely solid (2 points). Echogenicity: Hypoechoic (2 points). Shape: Wider than tall (0 points). Margin: Smooth (0 points). Echogenic foci: None or large comet-tail artifacts (0 points) Recommendation: If >1.5cm: FNA; If >1cm: Follow up at 1,2, 3,5 years 2. .9 X .6 x .7 cm, upper , Prior size: 1.0 x .6 x .6 cm TIRADS Score: 3 TIRADS Category 3: Composition: Solid or almost completely solid (2 points). Echogenicity: Hyperechoic or isoechoic (1 point). Shape: Wider than tall (0 points). Margin: Smooth (0 points). Echogenic foci: None or large comet-tail artifacts (0 points) Recommendation: If >2.5cm: FNA; If >1.5cm: Follow up at 1,3,5 years ISTHMUS: # of nodules measured in the isthmus: 0 Bilateral neck scanned, no evidence of lymphadenopathy. IMPRESSION: Heterogenous thyroid gland with increased color flow correlate for thyroiditis. Multinodular thyroid gland bilaterally of which one on the right and one in the left knee criteria fo r fine-needle aspiration if not already performed.
== END | disposition home or self-care (01) ==
LOC: RADUSWWP 15:01
PROVIDERS: ATTEND Family Medicine
DX: E04.2 Nontoxic multinodular goiter (principal)
CPT/HCPCS: 76536

== ENCOUNTER → 2024-06-24 | Day surgery (SDC) | payer MEDICARE ==
--- NOTE | 2024-07-20 19:04 | US ---
Patient: Ernestine Mcmahon L Ordering Physician: Unknown, Unknown ID: [id number] Phone, Pager: Phone: N/A Pager: N/A : [phone] Age/Gender: 68Y, F Primary Location: N/A Procedure: US FNA thyroid fi rst lesion Study Date: 06/24/2024 1:34:00 PM EXAMINATION TYPE: US FNA thyroid DATE OF EXAM: 07/06/2024 7:56 AM CLINICAL INDICATION: Thyroid nodule COMPARISON: 06/12/2024 ATTENDING: Dr. Teddy Tilley PROCEDURE: Informed consent was obtained. The risks and benefits of the procedure were discussed with the patien t. The site was marked. Timeout procedure was performed Ultrasound imaging demonstrates left thyroid nodule The patient was prepped, draped in the usual sterile fashion, and locally anesthetized with 1% lidoca ine. Five fine needle aspiration were then performed with a 25 gauge needle. Samples were sent to [facility] pathology department for further analysis. Patient tolerated the procedure without incident and wa s sent home in stable condition. IMPRESSION: Successful ultrasound guided fine needle aspiration
== END ==
LOC: RADPROMAIN 12:24
PROVIDERS: ATTEND Family Medicine
DX: E04.1 Nontoxic single thyroid nodule (principal)
CPT/HCPCS: 10005; 88173; 88305